=== PATIENT | female | born 1995 | race Caucasian/White ===

== ENCOUNTER 2018-01-07 17:17 | Emergency (ER) | END 2018-01-07 18:06 | disposition left against medical advice (07) ==

== ENCOUNTER 2018-11-19 12:01 | Emergency (ER) | payer OTHER ==
[~2018-11-19] VITALS: Ht 152.4 cm; Wt 55.0 kg
[~2018-11-19 12:01] MED LIST: ONDA4TAB8 PO
[2018-11-19 12:09] VITALS: Ht 152.4 cm; Wt 55.0 kg
[2018-11-19] MEDS ORDERED: ONDANSETRON 4 MG INJ IV STA (13:26)
[2018-11-19] MEDS ORDERED: SOD CHLORIDE 0.9% 1,000 ML IV ONE (13:30)
--- NOTE | 2018-11-19 13:36 | ERD ---
ER Documentation Chief Complaint Chief Complaint VOMITING X 2 Days HPI Patient is a 23 years old female with no known past medical history presenting to the ED for nausea, NBNB emesis, fever, chills X 2 days. Patient reports emesis occurs only at nighttime followed by daytime nausea. She reports difficult holding down fluids and solids. Patient denies diarrhea, constipation, hematochezia, flank pain, dysuria, urinary urgency, vaginal bleeding, vaginal discharge, abdominal pain. Patient reports LMP 2.5 weeks ago and denies . Patient cannot recall exact date of LMP. Patient reports feeling dehydrated. ROS All systems reviewed and are negative except as per history of present illness. Medications Home Meds Active Scripts Ondansetron Hcl* (Zofran*) 4 Mg Tablet, 4 MG PO Q8 for 7 Days, TAB Prov:MARYAN LUNA PA-C 11/19/18 Allergies Allergies: Coded Allergies: No Known Allergy (Unverified , 11/19/18) PMhx/Soc History of Surgery: No Anesthesia Reaction: No Hx Neurological Disorder: No Hx Respiratory Disorders: No Hx Cardiac Disorders: No Hx Psychiatric Problems: No Physical Exam Vitals Vital Signs Date Temp Pulse Resp B/P (MAP) Pulse Ox O2 O2 Flow FiO2 Time Delivery Rate 11/19/18 98.2 104 18 111/64 98 Room Air 15:04 (80) 11/19/18 98.2 77 18 117/77 99 12:09 (90) Physical Exam Const: Patient looks pale while lying on the exam bed position. Head: Atraumatic Resp: Clear to auscultation bilaterally Cardio: Regular rate and rhythm, no murmurs Abd: Soft, non tender, non distended. Normal bowel sounds. Negative Tam sign, Rovsing sign, McBurney's point tenderness, no guarding, negative rebound tenderness. Back: No midline or flank tenderness Psych: Normal Mood and Affect Result Diagram: 11/19/18 1340 11/19/18 1340 Results 24 hrs Laboratory Tests Test 11/19/18 13:40 11/19/18 13:43 White Blood Count 9.0 10^3/ul Red Blood Count 4.85 10^6/ul Hemoglobin 14.0 g/dl Hematocrit 41.3 % Mean Corpuscular Volume 85.2 fl Mean Corpuscular Hemoglobin 28.9 pg Mean Corpuscular Hemoglobin Concent 33.9 g/dl Red Cell Distribution Width 12.5 % Platelet Count 179 10^3/UL Mean Platelet Volume 9.9 fl Immature Granulocytes % 0.300 % Neutrophils % 80.6 % Lymphocytes % 12.2 % Monocytes % 6.3 % Eosinophils % 0.2 % Basophils % 0.4 % Nucleated Red Blood Cells % 0.0 /100WBC Immature Granulocytes # 0.030 10^3/ul Neutrophils # 7.2 10^3/ul Lymphocytes # 1.1 10^3/ul Monocytes # 0.6 10^3/ul Eosinophils # 0.0 10^3/ul Basophils # 0.0 10^3/ul Nucleated Red Blood Cells # 0.0 10^3/ul Urine Color YELLOW Urine Clarity SLIGHTLY CLOUDY Urine pH 6.0 Urine Specific Clare 1.026 Urine Ketones TRACE mg/dL Urine Nitrite NEGATIVE mg/dL Urine Bilirubin NEGATIVE mg/dL Urine Urobilinogen 1+ mg/dL Urine Leukocyte Esterase NEGATIVE Yossi/ul Urine Microscopic RBC 5 /HPF Urine Microscopic WBC 2 /HPF Urine Squamous Epithelial Cells FEW /HPF Urine Bacteria FEW /HPF Urine Mucus FEW /HPF Urine Hemoglobin NEGATIVE mg/dL Urine Glucose NEGATIVE mg/dL Urine Total Protein NEGATIVE mg/dl Sodium Level 141 mmol/L Potassium Level 4.5 mmol/L Chloride Level 104 mmol/L Carbon Dioxide Level 26 mmol/L Anion Gap 11 Blood Urea Nitrogen 7 mg/dl Creatinine 0.73 mg/dl Est Glomerular Filtrat Rate mL/min > 60 mL/min Glucose Level 96 mg/dl Calcium Level 9.8 mg/dl Total Bilirubin 0.4 mg/dl Direct Bilirubin 0.00 mg/dl Indirect Bilirubin 0.4 mg/dl Aspartate Amino Transf (AST/SGOT) 30 IU/L Alanine Aminotransferase (ALT/SGPT) 43 IU/L Alkaline Phosphatase 79 IU/L Total Protein 8.5 g/dl Albumin 5.0 g/dl Globulin 3.50 g/dl Albumin/Globulin Ratio 1.42 POC Beta HCG, Qualitative NEGATIVE Current Medications Medications Dose Sig/Colton Start Time Status Last (Trade) Ordered Route PRN Stop Time Admin Dose Reason Admin Sodium 1,000 ml @ Q1H ONCE 11/19/18 DC 11/19/18 Chloride 1,000 mls/hr IV 13:30 11/19/18 13:46 14:29 Ondansetron 4 mg ONCE STAT 11/19/18 DC 11/19/18 HCl (Zofran IV 13:26 11/19/18 13:47 Inj) 13:29 Procedures/MDM Patient was seen and evaluated for nausea and vomiting. Normal saline IV fluids Zofran initiated in ED. CBC, CMP, urinalysis are grossly unremarkable. Urine negative. Patient stable and ready for discharge. Follow-up with PCP. Patient be discharged Zofran. Low suspicion for appendicitis, cholecystitis, colitis. Departure Diagnosis: Primary Impression: Vomiting Vomiting type: unspecified Vomiting Intractability: intractable Nausea presence: with nausea Qualified Codes: R11.2 - Nausea with vomiting, unspecified Condition: Stable Patient Instructions: Vomiting (6Y-Adult) Referrals: [facility] Additional Instructions: Patient advised to return to the ED immediately for new or worsening symptoms. Patient advised to follow up with primary care provider in the next 24-48 hours. Patient verbalized understanding and agrees with treatment plan and course of action. If patient has no primary care they may follow up with [facility] [address] [place] [id number] or [facility] [address] [place] [address] or [facility] [address] [place] [address] MARYAN LUNA PA-C Nov 19, 2018 13:36
[2018-11-19 15:04] VITALS: BP 111/64; PULSE 104; RESP 18
== END 2018-11-19 15:07 | disposition home or self-care (01) ==
LOC: FTE 12:01
DX: R11.2 Nausea with vomiting, unspecified (principal)
CPT/HCPCS: 80053; 81001; 81025; 85025; 96374; J2405; J7030; Z7502; 81003